=== PATIENT | female | born 1955 | race Two or more races ===

== ENCOUNTER → 2018-04-26 | Outpatient (CLI) | END | disposition home or self-care (01) ==

== ENCOUNTER → 2018-05-10 | Outpatient (CLI) | END | disposition home or self-care (01) ==

== ENCOUNTER → 2018-05-24 | Outpatient (CLI) | END | disposition home or self-care (01) ==

== ENCOUNTER → 2018-06-07 | Outpatient (CLI) | END | disposition home or self-care (01) ==

== ENCOUNTER → 2018-06-28 | Outpatient (CLI) | payer OTHER ==
--- NOTE | 2018-06-28 12:49 | CONS ---
Date/Time of Note Date/Time of Note DATE: 06/28/18 TIME: 12:46 Consult Date/Type/Reason Admit Date/Time Initial Consult Date Subjective 63-year-old female following up for her nondisplaced left patella fracture. She is 12 weeks status post injury. At last visit she was told to start range of motion 0-90 degrees in the brace. She has followed all restrictions. States her pain is minimal to none. She is looking forward to returning to work. Objective Weight: 185 pound Height: 5 foot 5 inches Temperature: 98.4 Heart Rate: 93 Blood Pressure: 166/74 Respiratory Rate: 14 Exam General: Awake, alert, in no acute distress, pleasant and cooperative Heart: regular rhythm Lungs: breathing comfortably, no tachypnea or dyspnea Musculoskeletal: Left lower extremity: Skin intact. Minimal tenderness to palpation over the distal patella. Patient able to range her knee 0-110 degrees with minimal pain. Sensation intact to light touch in a sural, saphenous, deep peroneal, superficial peroneal, medial and lateral plantar nerve distribution. Motor is intact, patient able to dorsiflex and plantarflex ankle and extend and flex great toe. Dorsalis Pedis pulse +2, Brisk capillary refill. Compartments are soft. Calves non-tender to palpation bilaterally. Results/Medications Results 24 hrs AP and lateral of the left knee were obtained today and personally reviewed. There is a healed nondisplaced patella fracture involving the distal one third. Assessment/Plan Chief Complaint/Hosp Course 63-year-old female 12 weeks status post nondisplaced left patella fracture. She was treated nonoperatively with a hinged knee brace. She is doing very well. Currently her range of motion is 0-110 degrees passively. Radiographically and clinically the fracture is well healed. At this time I will allow her range of motion as tolerated when seated without the brace. When walking I am encouraging her to continue to brace with a lock up to 45 degrees of flexion secondary to quad atrophy and weakness. I like to begin physical therapy at this time. She can wean out of the brace when ambulating as her strength and quad control improves. I would like her to follow-up in 6 weeks with x-rays. ALIDA TAN MD Jun 28, 2018 12:49
--- NOTE | 2018-06-28 15:33 | RADRPT ---
PROCEDURE: Left knee x-ray CLINICAL INDICATION: Knee pain TECHNIQUE: Weight bearing AP and lateral views of the knee were obtained. COMPARISON: None FINDINGS: There is normal mineralization. No acute fracture or dislocation is seen. There is a small enthesophyte at the superior patella. There is a small joint effusion. There is no significant joint space narrowing. There is no significant soft tissue swelling. RPTAT: AA IMPRESSION: Small enthesophyte at the superior patella. Small left knee joint effusion. .Phani Parker MD, MD Date Time Electronically viewed and signed by .Phani Parker MD, on 06/28/2018 15:32 .S/
== END | disposition home or self-care (01) ==
LOC: HKI 10:08
PROVIDERS: ATTEND Orthopaedic Surgery Adult Reconstructive Orthopaedic Surgery
DX: Z47.89 Encounter for other orthopedic aftercare (principal); S82.092D Other fracture of left patella, subsequent encounter for closed fracture with routine healing; X58.XXXD Exposure to other specified factors, subsequent encounter
CPT/HCPCS: 73560; Z7500; G0463

== ENCOUNTER → 2018-08-09 | Outpatient (CLI) | payer OTHER ==
--- NOTE | 2018-08-09 18:19 | CONS ---
Consult Date/Type/Reason Admit Date/Time Initial Consult Date Date/Time of Note DATE: 08/09/18 TIME: 18:15 Subjective 63-year-old female following up today for left patella fracture. She is almost 18 weeks status post nondisplaced left patella fracture. She was treated nonoperatively. At the last visit she was told to wean out of her brace as her quad strength and coordination increased. She is now completely out of her brace. She needs a note for work to return. Denies any pain. Denies any complaints. Looking forward to return to work. Objective Vitals Weight: 185 pounds Height: 5 feet 5 inches Temperature: 98.3 Heart Rate: 96 Blood Pressure: 167/77 Respiratory Rate: 14 Exam General: Awake, alert, in no acute distress, pleasant and cooperative Heart: regular rhythm Lungs: breathing comfortably, no tachypnea or dyspnea MUSCULOSKELETAL: Left lower extremity: Skin intact. Nontender to palpation over the patella and knee. Range of motion 0-130. No knee effusion. Sensation intact to light touch in a sural, saphenous, deep peroneal, superficial peroneal, medial and lateral plantar nerve distribution. Motor is intact, patient able to dorsiflex and plantarflex ankle and extend and flex great toe. Dorsalis Pedis pulse +2, Brisk capillary refill. Compartments are soft. Calves non-tender to palpation bilaterally. Results/Medications Imaging AP and lateral of the left knee obtained in clinic today. Images personally reviewed. Demonstrate healed distal pole patella fracture. Assessment/Plan Hospital Course (Demo Recall) 63-year-old female 18 weeks status post left nondisplaced patella fracture. She was treated with nonoperative treatment. She is doing very well. She has no pain and has full strength and range of motion of her knee without use of a brace. She can return to work without any restrictions. Follow-up ALIDA DOMINGUEZ MD Aug 09, 2018 18:18
--- NOTE | 2018-08-10 08:02 | RADRPT ---
PROCEDURE: XR Left Knee. CLINICAL INDICATION: Left knee pain. TECHNIQUE: Two views. Frontal and lateral. COMPARISON: 06/28/2018. FINDINGS: There is no fracture or dislocation. The soft tissues are normal. The articular surfaces are intact. There is a small spur arising from the superior patella. There is no lytic or blastic lesion. There is no radiopaque foreign body. IMPRESSION: 1. Small superior patellar spur. 2. Otherwise unremarkable images of the left knee. RPTAT: QQ .Juan Braun MD, MD Date Time Electronically viewed and signed by .Juan Braun MD, MD on 08/10/2018 08:02 .R/
== END | disposition home or self-care (01) ==
LOC: HKI 10:06
PROVIDERS: ATTEND Orthopaedic Surgery Adult Reconstructive Orthopaedic Surgery
DX: S82.002D Unspecified fracture of left patella, subsequent encounter for closed fracture with routine healing (principal); X58.XXXD Exposure to other specified factors, subsequent encounter
CPT/HCPCS: G0463